=== PATIENT | female | born 1955 | race Hispanic/Latino ===

== ENCOUNTER 2017-04-18 21:21 | Emergency (ER) | payer BC ==
[2017-04-18 22:02] VITALS: BMI 21.2
[2017-04-18 22:05] VITALS: BP 175/89; PULSE 74; RESP 16; TEMP 97.8; O2SAT 99
[2017-04-18] MEDS ORDERED: Oxycodone/Acetaminophen 5/325 mg Tab PO STA (22:09)
[2017-04-18] MEDS ORDERED: Lidocaine 1% Inj (20ml) ONE (22:15)
[2017-04-18] MEDS ORDERED: Lidocaine 1% Inj (20ml) IJ ONE (22:15)
--- NOTE | 2017-04-18 22:43 | ED PDOC ---
HPI: General Adult Time Seen by Provider: 04/18/17 22:07 Chief Complaint (Nursing): Finger,Hand,&Wrist History Per: Patient Additional Complaint(s): Pt. states earlier today she tripped and fell injuring her R thumb. Reports noticing a deformity to the thumb. Denies numbness, tingling. Past Medical History Reviewed: Historical Data, Nursing Documentation, Vital Signs Vital Signs: Last Vital Signs Temp 97.8 F 04/18/17 22:03 Pulse 74 04/18/17 22:03 Resp 16 04/18/17 22:03 BP 175/89 H 04/18/17 22:03 Pulse Ox 99 04/19/17 00:42 - Family History Family History: States: No Known Family Hx - Allergies Allergies/Adverse Reactions: Allergies Allergy/AdvReac Type Severity Reaction Status Date / Time No Known Allergies Allergy Verified 04/18/17 22:02 Review of Systems ROS Statement: Except As Marked, All Systems Reviewed And Found Negative Physical Exam - Physical Exam Appears: Positive for: Well, Non-toxic, No Acute Distress Eye Exam: Positive for: Normal appearance Pulses-Radial (R): 2+ Extremity: Positive for: Other (R thumb with swelling and deformity at IP joint ; cap refill < 2 seconds) - ECG O2 Sat by Pulse Oximetry: 99 - Progress ED Course And Treament: R thumb x-ray: dislocation noted at IP joint without fx Digital block performed. R thumb was reduced without difficulty by PA. Post reduction x-ray: small comminuted fx noted at distal phalanx; no dislocation Pt. refused narcotic pain meds. Instructed to f/u with ortho for further evaluation. Thumb immobilized in aluminum finger splint applied by PA. Disposition - Clinical Impression Clinical Impression: Thumb fracture, Thumb dislocation - Patient ED Disposition Is Patient to be Admitted: No - Disposition Referrals: Tremaine Rainey MD [Staff Provider] - Disposition: Routine/Home Disposition Time: 22:44 Condition: IMPROVED Additional Instructions: Follow up with orthopedist for further evaluation. Instructions: Finger Dislocation (ED), Thumb Fracture (ED) Forms: [employer] (Croatian) Print Language: KYRGYZ
--- NOTE | 2017-04-19 13:52 | RAD ---
PROCEDURE: Right thumb dated 04/18/2017 HISTORY: Trauma COMPARISON: No prior TECHNIQUE: AP dorsal dislocation radiograph of the right hand, as well as spot oblique and lateral images of thumb were obtained. FINDINGS: RIGHT THUMB: Current study reveals apparent dorsal subluxation/dislocation of the distal phalanx right thumb. Questionable fracture of the distal aspect proximal phalanx and or base of the distal phalanx JOINTS: As above. SOFT TISSUES: Mild soft tissue swelling OTHER FINDINGS: None. IMPRESSION: There is dorsal subluxation/ dislocation distal phalanx right thumb with questionable for fractures of the distal aspect proximal phalanx or base of the distal phalanx. Mild surrounding soft tissue swelling.
--- NOTE | 2017-04-19 13:55 | RAD ---
PROCEDURE: Right Thumb radiographs. HISTORY: post reduction COMPARISON: Comparison made with prior study earlier same day TECHNIQUE: AP radiograph of the right hand, as well as spot oblique and lateral images of thumb were obtained. FINDINGS: RIGHT THUMB: There has been interval reduction previously noted dorsal subluxation/ dislocation distal phalanx right thumb. . There are tiny non fracture fragments seen presumably arising from the base distal phalanx however nondisplaced fracture traversing the distal aspect proximal phalanx right thumb not excluded. There is mild surrounding soft tissue swelling JOINTS: As above SOFT TISSUES: As above. OTHER FINDINGS: None. IMPRESSION: There has been interval reduction previously noted dorsal subluxation/ dislocation distal phalanx right thumb. .There are tiny fracture fragments seen presumably arising from the base distal phalanx however nondisplaced fracture traversing the distal aspect proximal phalanx right thumb not excluded. There is mild surrounding soft tissue swelling
== END 2017-04-18 22:50 | disposition home or self-care (01) ==
LOC: H.ER 21:21
DX: S63.101A Unspecified subluxation of right thumb, initial encounter (principal); W01.0XXA Fall on same level from slipping, tripping and stumbling without subsequent striking against object, initial encounter; Y92.89 Other specified places as the place of occurrence of the external cause

== ENCOUNTER 2017-04-22 18:29 | Emergency (ER) | payer BC ==
[2017-04-22 18:29] VITALS: BMI 21.2
[2017-04-22 19:24] VITALS: BP 157/82; PULSE 75; RESP 16; TEMP 100.7; O2SAT 97
--- NOTE | 2017-04-22 20:11 | ED PDOC ---
HPI: CCC, URI, Sore Throat Time Seen by Provider: 04/22/17 19:32 Chief Complaint (Nursing): Flu-like Symptoms Chief Complaint (Provider): Flu-like Symptoms History Per: Patient History/Exam Limitations: no limitations Onset/Duration Of Symptoms: Days (x1) Current Symptoms Are (Timing): Still Present Additional Complaint(s): 62 year old female presents to the ED with headache, runny nose, cough, chills, fever, and body aches, onset this morning. Patient also notes some chest pain when coughing. Has not taken any medications for symptom relief. Patient did receive a flu shot this year. No sick contacts at home. PMD: Provider TBD Past Medical History Reviewed: Historical Data, Nursing Documentation, Vital Signs Vital Signs: Last Vital Signs Temp 100.7 F H 04/22/17 19:21 Pulse 75 04/22/17 19:21 Resp 16 04/22/17 19:21 BP 157/82 H 04/22/17 19:21 Pulse Ox 97 04/22/17 21:27 - Medical History PMH: No Chronic Diseases - Family History Family History: States: Unknown Family Hx - Immunization History Hx Tetanus Toxoid Vaccination: No Hx Influenza Vaccination: No Hx Pneumococcal Vaccination: No - Home Medications Home Medications: Ambulatory Orders Medication Instructions Recorded Ibuprofen [Motrin] 600 mg PO Q6 #20 tab 04/22/17 Ondansetron ODT [Zofran ODT] 4 mg PO Q6 PRN #10 odt 04/22/17 Oseltamivir [Tamiflu] 75 mg PO BID 5 Days cap 04/22/17 - Allergies Allergies/Adverse Reactions: Allergies Allergy/AdvReac Type Severity Reaction Status Date / Time No Known Allergies Allergy Verified 04/18/17 22:02 Review of Systems ROS Statement: Except As Marked, All Systems Reviewed And Found Negative Constitutional: Positive for: Fever, Chills, Other (Body aches) ENT: Positive for: Nose Discharge, Nose Congestion Respiratory: Positive for: Cough Neurological: Positive for: Headache Physical Exam - Reviewed Nursing Documentation Reviewed: Yes Vital Signs Reviewed: Yes - Physical Exam Appears: Positive for: Non-toxic, No Acute Distress Head Exam: Positive for: ATRAUMATIC, NORMOCEPHALIC Skin: Positive for: Normal Color, Warm, Dry Eye Exam: Positive for: EOMI, Normal appearance, PERRL ENT: Positive for: Normal ENT Inspection Neck: Positive for: Normal, Painless ROM Cardiovascular/Chest: Positive for: Regular Rate, Rhythm. Negative for: Murmur Respiratory: Positive for: Normal Breath Sounds. Negative for: Accessory Muscle Use, Rhonchi, Wheezing, Respiratory Distress Gastrointestinal/Abdominal: Positive for: Normal Exam, Soft. Negative for: Tenderness Neurologic/Psych: Positive for: Alert, Oriented. Negative for: Motor/Sensory Deficits - Laboratory Results Result Diagrams: 04/22/17 20:57 04/22/17 20:57 - ECG O2 Sat by Pulse Oximetry: 97 (RA) Pulse Ox Interpretation: Normal Medical Decision Making Medical Decision Making: Time: 20:07 Initial Plan: --Chest X-Ray --Influenza A B --Motrin 600 mg PO --Tamiflu 75 mg PO --Reevaluation Labs reviewed: negative flu Labs resulted and reviewed with pt who demonstrated full understanding CXR: [id number] Advised supportive care measures. follow up with extractor operator helper, return to ED with any concerns Scribe Attestation: Documented by Tamiko Kinney, acting as a scribe for Ashlyn Angulo PA-C Provider Scribe Attestation: All medical record entries made by the Scribe were at my direction and personally dictated by me. I have reviewed the chart and agree that the record accurately reflects my personal performance of the history, physical exam, medical decision making, and the department course for this patient. I have also personally directed, reviewed, and agree with the discharge instructions and disposition. Disposition - Clinical Impression Clinical Impression: Influenza-like symptoms - Patient ED Disposition Is Patient to be Admitted: No - Disposition Disposition: Routine/Home Disposition Time: 20:00 Condition: STABLE Prescriptions: Ibuprofen [Motrin] 600 mg PO Q6 #20 tab Ondansetron ODT [Zofran ODT] 4 mg PO Q6 PRN #10 odt PRN Reason: Nausea/Vomiting Oseltamivir [Tamiflu] 75 mg PO BID 5 Days cap Instructions: Influenza (ED) Forms: [facility] (Faroese)
[2017-04-22] MEDS ORDERED: Sodium Chloride 0.9% 1,000 ML IV STA (20:27)
[2017-04-22 21:04] LABS: BASO % 0.2 % (0.0-2.0); EOS % 0.5 % (0.0-4.0); HEMOGLOBIN 14.4 g/dL (12.0-16.0); LYMPH # 0.7 K/uL (1.0-4.3); LYMPH % 10.7 % (20.0-40.0); MEAN CELL VOLUME 90.5 fl (81.0-99.0); MEAN CORPUSCULAR HEMOGLOBIN 31.4 pg (27.0-31.0); MEAN CORPUSCULAR HGB CONC 34.7 g/dL (33.0-37.0); MEAN PLATELET VOLUME 7.7 fl (7.2-11.7); MONO # 0.6 K/uL (0.0-0.8); MONO % 9.6 % (0.0-10.0); NEUT # 5.2 K/uL (1.8-7.0); NRBC % 0.3 % (0.0-0.0); RBC 4.58 Mil/uL (3.80-5.20); RED CELL DISTRIBUTION WIDTH 12.6 % (11.5-14.5); WHITE BLOOD COUNT 6.6 K/uL (4.8-10.8)
[2017-04-22 21:06] LABS: VENOUS BLOOD GAS BASE EXCESS 3.7 mmol/L (0.0-2.0); VENOUS BLOOD GAS PCO2 39 mmHg (40-60); VENOUS BLOOD GAS PO2 35 mm/Hg (30-55); VENOUS BLOOD PH 7.46 (7.32-7.43)
[2017-04-22 21:26] LABS: GFR AFRICAN-AMERICAN > 60; GFR NON-AFRICAN AMERICAN > 60
[2017-04-22 21:27] LABS: ALB/GLOB RATIO 1.2 (1.0-2.1); ALBUMIN 4.8 g/dL (3.5-5.0); ALT/SGPT 30 U/L (9-52); AST/SGOT 42 U/L (14-36); BLOOD UREA NITROGEN 7 mg/dl (7-17)
== END 2017-04-22 23:04 | disposition left against medical advice (07) ==
LOC: H.ER 18:29
DX: J11.1 Influenza due to unidentified influenza virus with other respiratory manifestations (principal)
CPT/HCPCS: 71046; 80053; 82803; 85025; 87040; 87804; 96374; 99283; J2405; J7040